=== PATIENT | female | born 1965 | race Caucasian/White ===

== ENCOUNTER 2025-09-25 08:57 | Emergency (ER) | payer BC ==
[~2025-09-25] VITALS: Ht 154.9 cm; Wt 137.3 kg
[2025-09-25] MEDS ORDERED: DIPHTH,PERTUSS(ACELL),TET VAC 0.5 ML SYRINGE IM ONE (09:30)
[2025-09-25 11:53] VITALS: BP 114/79
== END 2025-09-25 11:55 | disposition home or self-care (01) ==
LOC: ED 08:57
DX: S61.210A Laceration without foreign body of right index finger without damage to nail, initial encounter (principal); Z88.2 Allergy status to sulfonamides; W26.9XXA Contact with unspecified sharp object(s), initial encounter
CPT/HCPCS: 12001; 90471; 90715; 99282-25